=== PATIENT | female | born 1975 | race Two or more races ===

== ENCOUNTER 2020-01-05 01:03 | Emergency (ER) | payer MEDICARE, OTHER ==
[~2020-01-05] VITALS: Ht 165.1 cm; Wt 81.8 kg
[~2020-01-05 01:03] MED LIST: BLOO-140; INSLAN SQ; OLAN5TAB2 PO; SYRI-590 SQ
[2020-01-05] MEDS ORDERED: IBUPROFEN 400 MG TABLET PO ONE (02:45)
[2020-01-05] MEDS ORDERED: ACETAMINOPHEN 325 MG TABLET PO ONE (02:45)
[2020-01-05] MEDS ORDERED: LIDOCAINE 5% TRANSDERMAL PATCH TD ONE (02:45)
[2020-01-05 03:27] VITALS: BP 140/80
== END 2020-01-05 03:35 | disposition home or self-care (01) ==
LOC: EMS 01:04
DX: Z03.818 Encounter for observation for suspected exposure to other biological agents ruled out (principal); M54.5 Low back pain; G89.29 Other chronic pain; E11.9 Type 2 diabetes mellitus without complications; Z79.4 Long term (current) use of insulin
CPT/HCPCS: 82962; 99284; U0003